=== PATIENT | male | born 1980 ===

== ENCOUNTER 2019-03-06 21:18 | Emergency (ER) | payer SELFPAY ==
[2019-03-06 22:46] LABS: Absolute Lymphocytes (CBC) 0.3 K/uL (0.7-4.9); Basophils % 0.3 % (0-1.3); Hematocrit 38.9 % (39.6-49.0); Lymphocytes % 10.5 % (15.3-44.8); MPV 10.8 fL (7.6-11.3); RBC Red Blood Cell Count 4.25 M/uL (4.33-5.43)
[2019-03-06 23:01] LABS: Potassium 3.8 mmol/L (3.5-5.1)
[2019-03-07 00:46] LABS: Urine Blood NEGATIVE (NEG); Urine Glucose NEGATIVE (NEG); Urine Protein NEGATIVE (NEG); Urine Specific Gravity 1.015 (1.005-1.030); Urine pH 7.5 (5.0-7.0)
--- NOTE | 2019-03-07 01:15 | ER ---
Nurse's Notes [facility] Name: Yong Dukes Age: 38 yrs Sex: Male : 1980 Arrival Date: 03/06/2019 Time: 21:25 Bed 14 Private MD: Diagnosis: Unspecified abdominal pain;Fever presenting with conditions classified elsewhere Presentation: 03/06 21:37 Presenting complaint: Patient states: Chills and abdominal pain since Sunday after aj1 work. Reports pain to umbilical area. Denies N/V/D. Transition of care: patient was not received from another setting of care. Onset of symptoms was February 2019. Risk Assessment: Do you want to hurt yourself or someone else? Patient reports no desire to harm self or others. Initial Sepsis Screen: Does the patient meet any 2 criteria? No. Patient's initial sepsis screen is negative. Does the patient have a suspected source of infection? No. Patient's initial sepsis screen is negative. Care prior to arrival: None. 21:37 Method Of Arrival: Ambulatory [facility] 21:37 Acuity: CLAUDIA 3 aj1 Triage Assessment: 21:39 General: Appears in no apparent distress. comfortable, Behavior is calm, cooperative, aj1 appropriate for age. Pain: Complains of pain in umbilical area. Pain: Pain currently is 4 out of 10 on a pain scale. Neuro: Level of Consciousness is awake, alert, obeys commands, Oriented to person, place, time, situation. Cardiovascular: Patient's skin is warm and dry. Respiratory: Airway is patent Respiratory effort is even, unlabored, Respiratory pattern is regular, symmetrical. GI: Patient currently denies diarrhea, vomiting. Historical: - Allergies: 21:39 No Known Allergies; aj1 - Home Meds: 21:39 lisinopril [Active]; unknown blood pressure medication [Active]; aj1 - PMHx: 21:39 Hypertension; aj1 - PSHx: 21:39 None; aj1 - Immunization history:: Flu vaccine is not up to date. - Social history:: Smoking status: Patient/guardian denies using tobacco. - Ebola Screening: : Patient denies travel to an Ebola-affected area in the 21 days before illness onset. Screenin:44 Abuse screen: Denies threats or abuse. Denies injuries from another. Nutritional mg2 screening: No deficits noted. Tuberculosis screening: No symptoms or risk factors identified. Fall Risk IV access (20 points). Assessment: 23:43 General: Appears in no apparent distress. comfortable, Behavior is calm, cooperative. mg2 Pain: Complains of pain in abdomen and umbilical area Pain does not radiate. Pain currently is 2 out of 10 on a pain scale. Quality of pain is described as aching, Pain began gradually, Is intermittent. Neuro: Level of Consciousness is awake, alert, obeys commands, Oriented to person, place, time, situation. Cardiovascular: Capillary refill < 3 seconds Patient's skin is warm and dry. Respiratory: No deficits noted. GI: Reports lower abdominal pain. : No signs and/or symptoms were reported regarding the genitourinary system. EENT: No signs and/or symptoms were reported regarding the EENT system. Derm: Skin is intact, is healthy with good turgor, Skin is pink, warm \T\ dry. normal. Musculoskeletal: Circulation, motion, and sensation intact. Capillary refill < 3 seconds. 03/07 00:57 Reassessment: Patient appears in no apparent distress at this time. Patient and/or family updated on plan of care and expected duration. Pain level reassessed. Patient is alert, oriented x 3, equal unlabored respirations, skin warm/dry/pink. Patient states feeling better. Patient states symptoms have improved. 01:08 Reassessment: report given to Arleen. 01:28 Reassessment: Ana DICKERSON notified of temp. Dr Espinosa going to see pt and evaluate him. fc Pt to be moved to room 14 and report given to Fredis STUART. 02:35 Reassessment: Patient appears in no apparent distress at this time. Patient and/or jb4 family updated on plan of care and expected duration. Pain level reassessed. Patient is alert, oriented x 3, equal unlabored respirations, skin warm/dry/pink. Reports having slight pain to the lower abdomen, otherwise is comfortable. family member is at the bedside. 03:35 Reassessment: Patient appears in no apparent distress at this time. Patient and/or jb4 family updated on plan of care and expected duration. Pain level reassessed. Patient is alert, oriented x 3, equal unlabored respirations, skin warm/dry/pink. 04:24 Reassessment: Patient appears in no apparent distress at this time. Patient and/or jb4 family updated on plan of care and expected duration. Pain level reassessed. Patient is alert, oriented x 3, equal unlabored respirations, skin warm/dry/pink. 05:43 Reassessment: Patient appears in no apparent distress at this time. Patient and/or jb4 family updated on plan of care and expected duration. Pain level reassessed. Patient is alert, oriented x 3, equal unlabored respirations, skin warm/dry/pink. 06:56 Reassessment: Patient appears in no apparent distress at this time. Patient and/or jb4 family updated on plan of care and expected duration. Pain level reassessed. Patient is alert, oriented x 3, equal unlabored respirations, skin warm/dry/pink. Pt ambulated out of ED with , steady gait, verbalized understanding of d/c and follow up instructions. Vital Signs: 03/06 21:39 BP 148 / 89; Pulse 97; Resp 18; Temp 98.2; Pulse Ox 100% on R/A; Weight 77.11 kg (R); aj1 Pain 4/10; 23:55 BP 153 / 79; Pulse 96; Resp 20; Temp 99.0(O); Pulse Ox 100% ; lt1 03/07 00:02 BP 138 / 76; Pulse 97; Resp 18; Pulse Ox 100% on R/A; mg2 00:57 BP 136 / 89; Pulse 92; Resp 16; Temp 98.1; Pulse Ox 99% on R/A; Pain 4/10; ch 01:28 BP 136 / 79; Pulse 90; Resp 18; Temp 102.8(O); Pulse Ox 98% on R/A; Pain 0/10; fc 02:30 BP 128 / 78; Pulse 95; Resp 16; Temp 101.2(O); Pulse Ox 98% on R/A; jb4 03:30 BP 121 / 81; Pulse 78; Resp 16; Pulse Ox 95% on R/A; jb4 04:30 BP 116 / 72; Pulse 64; Resp 17; Temp 98.5(O); Pulse Ox 97% on R/A; jb4 05:30 BP 132 / 80; Pulse 82; Resp 16; Pulse Ox 99% on R/A; jb4 06:30 BP 122 / 86; Pulse 76; Resp 16; Pulse Ox 100% on R/A; jb4 ED Course: 03/06 21:25 Patient arrived in ED. ds1 21:33 Ana De La Fuente FNP-C [facility]. kb 21:33 Lucas Espinosa MD is Attending Physician. kb 21:38 Triage completed. aj1 21:39 Arm band placed on Patient placed in waiting room, Patient notified of wait time. aj1 23:00 Inserted saline lock: 20 gauge in right antecubital area, using aseptic technique. mg2 Blood collected. 23:44 Patient has correct armband on for positive identification. Pulse ox on. NIBP on. mg2 23:58 CT Abd/Pelvis - IV Contrast Only In Process Unspecified. EDMS 08 01:35 IV is patent, is intact, with fluids infusing freely, with good blood return. jb4 01:41 Twin Bui, RN is Primary Nurse. jb4 01:47 Served as a encoding machine operator during rectal exam. ak1 02:07 X-ray completed. Portable x-ray completed in exam room. Patient tolerated procedure kw well. 02:09 Chest Single View XRAY In Process Unspecified. EDMS 06:30 IV discontinued, intact, bleeding controlled, No redness/swelling at site. Pressure jb4 dressing applied. Administered Medications: 01:45 Drug: Ibuprofen 600 mg Route: PO; jb4 02:45 Follow up: Response: No adverse reaction; Temperature is decreased jb4 02:35 Drug: Rocephin 2 grams {Note: no IV push variants in the pixes, provider notified, jb4 given IVPB over 30 minutes.} Route: IV; Rate: calculated rate; Site: right antecubital; 03:05 Follow up: Response: No adverse reaction; IV Status: Completed infusion; IV Intake: jb4 100ml 02:55 Drug: NS 0.9% 1000 ml Route: IV; Rate: 1000 ml; Site: right antecubital; jb4 04:00 Follow up: IV Status: Completed infusion; IV Intake: 1000ml jb4 Intake: 03:05 IV: 100ml; Total: 100ml. jb4 04:00 IV: 1000ml; Total: 1100ml. jb4 Outcome: 01:13 Discharge ordered by . kb 06:30 Discharged to home ambulatory, with family. jb4 06:30 Condition: stable 06:30 Discharge instructions given to patient, family, Instructed on discharge instructions, follow up and referral plans. medication usage, Demonstrated understanding of instructions, follow-up care, medications, Prescriptions given X 3. 06:35 Discharge ordered by MD. sandoval 07:03 Patient left the ED. jb4 Signatures: Dispatcher [employer] EDHI Ana De La Fuente, PENOLOGY PROFESSOR-C PENOLOGY PROFESSOR-Alicia Hudson, RN RN Ingrid Hughes RN RN aj1 Diane Jasmine PENOLOGY PROFESSOR-C PENOLOGY PROFESSOR-Blossom Aguero, RN RN Chandrika Ruiz ds1 Kierra Rose Amber, RN RN ak1 Twin Bui RN RN jb4 Kali Pennington RN RN mg2 Karis Rodriguez 1 Corrections: (The following items were deleted from the chart) 01:48 08 23:00 No provider procedures requiring assistance completed. mg2 ak1
--- NOTE | 2019-03-07 01:15 | EDPHYS ---
Physician Documentation [facility] Name: Yong Dukes Age: 38 yrs Sex: Male : 1980 Arrival Date: 03/06/2019 Time: 21:25 Bed 14 Private MD: ED Physician Lucas Espinosa HPI: 03/07 00:30 This 38 yrs old Male presents to ER via Ambulatory with complaints of Fever. kb 00:30 The patient presents with abdominal pain suprapubic. Onset: The symptoms/episode kb began/occurred 3 day(s) ago. The symptoms do not radiate. Associated signs and symptoms: Pertinent positives: fever, Pertinent negatives: nausea, vomiting, and diarrhea. The symptoms are described as constant. Modifying factors: The symptoms are alleviated by nothing, the symptoms are aggravated by nothing. Severity of pain: At its worst the pain was mild moderate in the emergency department the pain is unchanged. The patient has not experienced similar symptoms in the past. The patient has not recently seen a physician. Historical: - Allergies: 03/06 21:39 No Known Allergies; aj1 - Home Meds: 21:39 lisinopril [Active]; unknown blood pressure medication [Active]; aj1 - PMHx: 21:39 Hypertension; aj1 - PSHx: 21:39 None; aj1 - Immunization history:: Flu vaccine is not up to date. - Social history:: Smoking status: Patient/guardian denies using tobacco. - Ebola Screening: : Patient denies travel to an Ebola-affected area in the 21 days before illness onset. ROS: 03/07 00:29 ENT: Negative for injury, pain, and discharge, Neck: Negative for injury, pain, and kb swelling, Cardiovascular: Negative for chest pain, palpitations, and edema, Respiratory: Negative for shortness of breath, cough, wheezing, and pleuritic chest pain, Back: Negative for injury and pain, : Negative for injury, bleeding, discharge, and swelling, MS/Extremity: Negative for injury and deformity, Skin: Negative for injury, rash, and discoloration, Neuro: Negative for headache, weakness, numbness, tingling, and seizure. Constitutional: Positive for fever, Negative for body aches, chills, fatigue, malaise, poor PO intake, weight loss. Abdomen/GI: Positive for abdominal pain, Negative for nausea, vomiting, and diarrhea, diarrhea, constipation, abdominal cramps, abdominal distension, anorexia. Exam: 00:29 Constitutional: This is a well developed, well nourished patient who is awake, alert, kb and in no acute distress. Head/Face: Normocephalic, atraumatic. ENT: Nares patent. No nasal discharge, no septal abnormalities noted. Tympanic membranes are normal and external auditory canals are clear. Oropharynx with no redness, swelling, or masses, exudates, or evidence of obstruction, uvula midline. Mucous membranes moist. Neck: Trachea midline, no thyromegaly or masses palpated, and no cervical lymphadenopathy. Supple, full range of motion without nuchal rigidity, or vertebral point tenderness. No Meningismus. Chest/axilla: Normal chest wall appearance and motion. Nontender with no deformity. No lesions are appreciated. Cardiovascular: Regular rate and rhythm with a normal S1 and S2. No gallops, murmurs, or rubs. Normal PMI, no JVD. No pulse deficits. Respiratory: Lungs have equal breath sounds bilaterally, clear to auscultation and percussion. No rales, rhonchi or wheezes noted. No increased work of breathing, no retractions or nasal flaring. Abdomen/GI: Soft, non-tender, with normal bowel sounds. No distension or tympany. No guarding or rebound. No evidence of tenderness throughout. Skin: Warm, dry with normal turgor. Normal color with no rashes, no lesions, and no evidence of cellulitis. MS/ Extremity: Pulses equal, no cyanosis. Neurovascular intact. Full, normal range of motion. Neuro: Awake and alert, GCS 15, oriented to person, place, time, and situation. Cranial nerves II-XII grossly intact. Motor strength 5/5 in all extremities. Sensory grossly intact. Cerebellar exam normal. Normal gait. 02:04 Abdomen/GI: Rectal exam: Prostate: normal, rectal tone normal, Stool: guaiac trace kb positive, the exam is chaperoned by the nurse. Vital Signs: 03/06 21:39 BP 148 / 89; Pulse 97; Resp 18; Temp 98.2; Pulse Ox 100% on R/A; Weight 77.11 kg (R); aj1 Pain 4/10; 23:55 BP 153 / 79; Pulse 96; Resp 20; Temp 99.0(O); Pulse Ox 100% ; lt1 03/07 00:02 BP 138 / 76; Pulse 97; Resp 18; Pulse Ox 100% on R/A; mg2 00:57 BP 136 / 89; Pulse 92; Resp 16; Temp 98.1; Pulse Ox 99% on R/A; Pain 4/10; ch 01:28 BP 136 / 79; Pulse 90; Resp 18; Temp 102.8(O); Pulse Ox 98% on R/A; Pain 0/10; fc 02:30 BP 128 / 78; Pulse 95; Resp 16; Temp 101.2(O); Pulse Ox 98% on R/A; jb4 03:30 BP 121 / 81; Pulse 78; Resp 16; Pulse Ox 95% on R/A; jb4 04:30 BP 116 / 72; Pulse 64; Resp 17; Temp 98.5(O); Pulse Ox 97% on R/A; jb4 05:30 BP 132 / 80; Pulse 82; Resp 16; Pulse Ox 99% on R/A; jb4 06:30 BP 122 / 86; Pulse 76; Resp 16; Pulse Ox 100% on R/A; jb4 MDM: 03/06 22:05 Patient medically screened. kb 03/07 00:29 Data reviewed: vital signs, nurses notes. Data interpreted: Pulse oximetry: on room air kb is 100 %. Interpretation: normal. 01:36 ED course: Pt spiked a fever now. Dr Espinosa evaluated pt as well. Will add labs, give kb antibiotics and keep pt for observation upon Dr Espinosa's recommendation. 02:03 ED course: Discussed admission with Dr Palma. He does not feel that pt needs to be kb admitted based on what we have found. Discussed this with Dr Espinosa. Dr Espinosa will monitor pt and reevaluate after treatment. . 03/06 22:28 Order name: Basic Metabolic Panel; Complete Time: 23:05 kb 03/06 22:28 Order name: CBC with Diff; Complete Time: 22:58 kb 03/07 00:40 Order name: Urine Dipstick--Ancillary (enter results) mw2 03/07 01:37 Order name: Hepatic Function; Complete Time: 02:44 kb 03/07 01:37 Order name: Lipase; Complete Time: 02:44 kb 03/07 01:37 Order name: [place] Screen Profile; Complete Time: 02:44 kb 03/06 22:28 Order name: CT Abd/Pelvis - IV Contrast Only kb 03/07 01:46 Order name: Urine Microscopic Only; Complete Time: 06:18 kb 03/07 01:46 Order name: Urine Culture kb 03/07 01:46 Order name: Blood Culture Adult (2) kb 03/07 01:46 Order name: Lactate; Complete Time: 02:44 kb 03/07 01:46 Order name: Procalcitonin; Complete Time: 06:18 kb 03/07 01:56 Order name: Chest Single View XRAY kb 03/06 22:28 Order name: IV Saline Lock; Complete Time: 23:00 kb 03/06 22:28 Order name: Labs collected and sent; Complete Time: 23:00 kb Administered Medications: 01:45 Drug: Ibuprofen 600 mg Route: PO; jb4 02:45 Follow up: Response: No adverse reaction; Temperature is decreased jb 02:35 Drug: Rocephin 2 grams {Note: no IV push variants in the pixes, provider notified, jb4 given IVPB over 30 minutes.} Route: IV; Rate: calculated rate; Site: right antecubital; 03:05 Follow up: Response: No adverse reaction; IV Status: Completed infusion; IV Intake: jb4 100ml 02:55 Drug: NS 0.9% 1000 ml Route: IV; Rate: 1000 ml; Site: right antecubital; jb4 04:00 Follow up: IV Status: Completed infusion; IV Intake: 1000ml jb4 Disposition: 03/07/19 06:35 Discharged to Home. Impression: Unspecified abdominal pain, Fever presenting with conditions classified elsewhere. - Condition is Stable. - Discharge Instructions: Abdominal Pain, Adult, Fever, Adult. - Prescriptions for Bentyl 20 mg Oral Tablet - take 1 tablet by ORAL route every 6 hours As needed; 20 tablet. Cipro 500 mg Oral Tablet - take 1 tablet by ORAL route every 12 hours for 10 days; 20 tablet. Flagyl 500 mg Oral Tablet - take 1 tablet by ORAL route every 8 hours for 10 days No Alcohol within 8 hours of last dose; 30 tablet. - Work release form, Medication Reconciliation Form, Thank You Letter, Antibiotic Education, Prescription Opioid Use form. - Follow up: Private Physician; When: 2 - 3 days; Reason: Recheck today's complaints, Continuance of care, Re-evaluation by your physician. Follow up: Emergency Department; When: As needed; Reason: Worsening of condition. Signatures: Dispatcher [employer] EDAna Riojas, CATHY LOPEZ-Ingrid Limon RN RN aj1 Diane Jasmine FNP-C FNP-Twin Mack RN RN jb4 Corrections: (The following items were deleted from the chart) 01:37 00:29 Counseling: I had a detailed discussion with the patient and/or guardian kb regarding: the historical points, exam findings, and any diagnostic results supporting the discharge/admit diagnosis, lab results, radiology results, the need for outpatient follow up, a family practitioner, to return to the emergency department if symptoms worsen or persist or if there are any questions or concerns that arise at home, kb 01:37 01:13 03/07/2019 01:13 Discharged to Home. Impression: Lower abdominal pain, kb unspecified. Condition is Stable. Forms are Medication Reconciliation Form, Thank You Letter, Antibiotic Education, Prescription Opioid Use. Follow up: Emergency Department; When: As needed; Reason: Worsening of condition. Follow up: Private Physician; When: 2 - 3 days; Reason: Recheck today's complaints, Continuance of care, Re-evaluation by your physician. kb 07:03 06:35 03/07/2019 06:35 Discharged to Home. Impression: Unspecified abdominal pain; jb4 Fever presenting with conditions classified elsewhere. Condition is Stable. Forms are Medication Reconciliation Form, Thank You Letter, Antibiotic Education, Prescription Opioid Use. Follow up: Private Physician; When: 2 - 3 days; Reason: Recheck today's complaints, Continuance of care, Re-evaluation by your physician. Follow up: Emergency Department; When: As needed; Reason: Worsening of condition. snw
[2019-03-07] MEDS ORDERED: IBUPROFEN 200 MG TAB PO ONE (01:43)
[2019-03-07] MEDS ORDERED: CEFTRIAXONE 1000 MG/VIAL ONE ×2 (01:43→01:44)
[2019-03-07] MEDS ORDERED: NA CHLORIDE 0.9% 100 ML IV ONE (02:18)
[2019-03-07 02:37] LABS: Albumin 3.7 g/dL (3.4-5.0); Bilirubin Direct 0.2 mg/dL (0-0.2); Bilirubin Total 0.7 mg/dL (0.2-1.0); Protein, Total 7.3 g/dL (6.4-8.2)
[2019-03-07 02:45] LABS: Urine RBC NONE SEEN /HPF (NONE SEEN)
[2019-03-07 02:46] LABS: Urine Bacteria <20 /HPF (NONE SEEN); Urine Culture Reflex Order NOT NEEDED
[2019-03-07] MEDS ORDERED: NA CHLORIDE 0.9% 1,000 ML ONE (02:53)
--- NOTE | 2019-03-07 08:39 | RAD REPORT ---
EXAM DESCRIPTION: [place] Single View03/07/2019 2:08 am CLINICAL HISTORY: Fever COMPARISON: none FINDINGS: The lungs appear clear of acute infiltrate. The heart is normal size IMPRESSION: No acute abnormalities displayed
--- NOTE | 2019-03-10 15:14 | RAD REPORT ---
EXAM DESCRIPTION: CT - Abdomen Pelvis W Contrast - 03/07/2019 3:07 am CLINICAL HISTORY: 38 years Male ABD PAIN COMPARISON: None TECHNIQUE: Images were obtained in axial, sagittal, and coronal planes. Intravenous contrast was adm inistered. Arterial and venous phase imaging was performed. This exam was performed according to our departmental dose-optimization program which includes use of Automated Exposure Control, adjustment of the mA and/or kV according to patient size and/or use of i terative reconstruction technique. FINDINGS: Appendix within normal limits. No bowel obstruction, perforation, or inflammation. No obstructing renal calcifications bilaterally. No hydronephrosis bilaterally. Unremarkable bladder. No abnormality involving the liver. Contracted gallbladder. Spleen is enlarged measuring 13.6 cm in g reatest dimension. Unremarkable pancreas and adrenal glands bilaterally. No dilatation abdominal aorta. Unremarkable portal vein. No adenopathy or abnormal fluid collections seen. No abnormality lower lungs bilaterally. No acute osseous abnormality. IMPRESSION: No acute intra-abdominal abnormality. Enlarged spleen. Contracted gallbladder. Appendix within normal limits. Electronically signed by: Ni Schwab MD 03/07/2019 12:07 AM CDT Due to temporary technical issues with the PACS/Fluency reporting system, reports are being signed by the in house radiologist as a courtesy to ensure prompt reporting. The interpreting radiologist is f ully responsible for the content of the report.
== END 2019-03-07 07:03 | disposition home or self-care (01) ==
LOC: ER 21:18
DX: R10.2 Pelvic and perineal pain (principal); R50.9 Fever, unspecified; I10 Essential (primary) hypertension
CPT/HCPCS: 36415; 71045; 74177; 80048; 80076; 81003; 81015; 83605; 83690; 84145; 85025; 86308; 87040; 87086; 87088; 96361; 96365; 99284; J7030; Q9967

== ENCOUNTER 2019-06-19 22:51 | Emergency (ER) | payer SELFPAY ==
[2019-06-19] MEDS ORDERED: NA CHLORIDE 0.9% 500 ML ONE (23:50)
[2019-06-20 00:43] LABS: Barbiturates NEGATIVE (NEGATIVE); Benzodiazepines NEGATIVE (NEGATIVE); Cocaine NEGATIVE (NEGATIVE); METHAMPHETAM NEGATIVE (NEGATIVE); Methadone NEGATIVE (NEGATIVE); Opiates NEGATIVE (NEGATIVE); Phencyclidine NEGATIVE (NEGATIVE); THC Cannibis NEGATIVE (NEGATIVE)
[2019-06-20 00:58] LABS: Urine Blood NEGATIVE (NEG); Urine Glucose NEGATIVE (NEG); Urine Protein NEGATIVE (NEG); Urine Specific Gravity 1.015 (1.005-1.030)
[2019-06-20 00:59] LABS: Protime INR 1.26
[2019-06-20 01:00] LABS: Absolute Lymphocytes (CBC) 1.2 K/uL (0.7-4.9); Basophils % 0.3 % (0-1.3); Lymphocytes % 17.7 % (15.3-44.8); MPV 10.8 fL (7.6-11.3); RBC Red Blood Cell Count 4.85 M/uL (4.33-5.43)
[2019-06-20 01:18] LABS: ALT/SGPT 26 U/L (12-78); AST/SGOT 14 U/L (15-37); Albumin 4.1 g/dL (3.4-5.0); Alkaline Phosphatase 68 U/L (45-117); BUN Blood Urea Nitrogen 15 mg/dL (7-18); Bicarbonate 28 mmol/L (21-32); Bilirubin Direct 0.1 mg/dL (0-0.2); Bilirubin Total 0.3 mg/dL (0.2-1.0); Glucose Level 101 mg/dL (74-106); Lipase 68 U/L (73-393); Magnesium 2.2 mg/dL (1.8-2.4); NT PRO-BNP 7 pg/mL (<125); Potassium 3.4 mmol/L (3.5-5.1); Protein, Total 7.5 g/dL (6.4-8.2); Sodium Level 141 mmol/L (136-145); Troponin (Emerg Dept Use Only) < 0.02 ng/mL (0.0-0.045)
--- NOTE | 2019-06-20 01:28 | EDPHYS ---
Physician Documentation [facility] Name: Yong Dukes Age: 38 yrs Sex: Male : 1980 Arrival Date: 06/19/2019 Time: 22:55 Bed 26 Private MD: ED Physician Travon Ball HPI: 06/19 23:31 This 38 yrs old Male presents to ER via Ambulatory with complaints of High adan Blood Pressure. 23:31 The patient has elevated blood pressure and discovered this at home. Onset: The adan symptoms/episode began/occurred today, yesterday. Modifying factors: The symptoms are aggravated by activity, The symptoms are alleviated by remaining still. Associated signs and symptoms: The patient has no apparent associated signs or symptoms. Severity of symptoms: At its worst the blood pressure was mild, in the emergency department the blood pressure is unchanged. The patient has not experienced similar symptoms in the past. Historical: - Allergies: 23:07 No Known Allergies; ak1 - Home Meds: 23:07 Lisinopril [Active]; unknown blood pressure medication [Active]; ak1 - PMHx: 23:07 Hypertension; ak1 - PSHx: 23:07 None; ak1 - Immunization history:: Adult Immunizations unknown. - Social history:: Smoking status: Patient/guardian denies using tobacco. - Family history:: not pertinent. - Ebola Screening: : Patient denies travel to an Ebola-affected area in the 21 days before illness onset. ROS: 23:31 Constitutional: Negative for fever, chills, and weight loss, Eyes: Negative for injury, adan pain, redness, and discharge, ENT: Negative for injury, pain, and discharge, Neck: Negative for injury, pain, and swelling, Respiratory: Negative for shortness of breath, cough, wheezing, and pleuritic chest pain, Abdomen/GI: Negative for abdominal pain, nausea, vomiting, diarrhea, and constipation, Back: Negative for injury and pain, : Negative for injury, bleeding, discharge, and swelling, MS/Extremity: Negative for injury and deformity, Skin: Negative for injury, rash, and discoloration, Neuro: Negative for headache, weakness, numbness, tingling, and seizure, Psych: Negative for depression, anxiety, suicide ideation, homicidal ideation, and hallucinations, Allergy/Immunology: Negative for hives, rash, and allergies, Endocrine: Negative for neck swelling, polydipsia, polyuria, polyphagia, and marked weight changes, Hematologic/Lymphatic: Negative for swollen nodes, abnormal bleeding, and unusual bruising. 23:31 Cardiovascular: Positive for palpitations. Exam: 23:31 Constitutional: This is a well developed, well nourished patient who is awake, alert, adan and in no acute distress. Head/Face: Normocephalic, atraumatic. Eyes: Pupils equal round and reactive to light, extra-ocular motions intact. Lids and lashes normal. Conjunctiva and sclera are non-icteric and not injected. Cornea within normal limits. Periorbital areas with no swelling, redness, or edema. ENT: Nares patent. No nasal discharge, no septal abnormalities noted. Tympanic membranes are normal and external auditory canals are clear. Oropharynx with no redness, swelling, or masses, exudates, or evidence of obstruction, uvula midline. Mucous membranes moist. Neck: Trachea midline, no thyromegaly or masses palpated, and no cervical lymphadenopathy. Supple, full range of motion without nuchal rigidity, or vertebral point tenderness. No Meningismus. Chest/axilla: Normal chest wall appearance and motion. Nontender with no deformity. No lesions are appreciated. Cardiovascular: Regular rate and rhythm with a normal S1 and S2. No gallops, murmurs, or rubs. Normal PMI, no JVD. No pulse deficits. Respiratory: Lungs have equal breath sounds bilaterally, clear to auscultation and percussion. No rales, rhonchi or wheezes noted. No increased work of breathing, no retractions or nasal flaring. Abdomen/GI: Soft, non-tender, with normal bowel sounds. No distension or tympany. No guarding or rebound. No evidence of tenderness throughout. Back: No spinal tenderness. No costovertebral tenderness. Full range of motion. Male : Normal genitalia with no discharge or lesions. Skin: Warm, dry with normal turgor. Normal color with no rashes, no lesions, and no evidence of cellulitis. MS/ Extremity: Pulses equal, no cyanosis. Neurovascular intact. Full, normal range of motion. Neuro: Awake and alert, GCS 15, oriented to person, place, time, and situation. Cranial nerves II-XII grossly intact. Motor strength 5/5 in all extremities. Sensory grossly intact. Cerebellar exam normal. Normal gait. Psych: Awake, alert, with orientation to person, place and time. Behavior, mood, and affect are within normal limits. Vital Signs: 23:05 BP 155 / 97; Pulse 100; Resp 16; Temp 97.4; Pulse Ox 100% on R/A; Weight 79.38 kg (R); ak1 Height 5 ft. 5 in. (165.10 cm) (R); 06/20 00:10 BP 137 / 91; Pulse 88; Resp 18; Pulse Ox 97% on R/A; [facility] 01:12 BP 142 / 92; Pulse 84; Resp 19; Pulse Ox 98% on R/A; 1 06/19 23:05 Body Mass Index 29.12 (79.38 kg, 165.10 cm) [facility] MDM: 06/19 23:01 Patient medically screened. [facility] 23:33 Data reviewed: vital signs, nurses notes, lab test result(s), EKG, radiologic studies, adan plain films. 06/19 23:29 Order name: Basic Metabolic Panel [facility] 06/19 23:29 Order name: CBC with Diff; Complete Time: 01:05 [facility] 06/19 23:29 Order name: LFT's [facility] 06/19 23:29 Order name: Magnesium [facility] 06/19 23:29 Order name: NT PRO-BNP [facility] 06/19 23:29 Order name: PT-INR; Complete Time: 01:05 [facility] 06/19 23:29 Order name: Troponin (emerg Dept Use Only) [facility] 06/19 23:29 Order name: XRAY Chest (1 view) [facility] 06/19 23:29 Order name: Lipase [facility] 06/19 23:29 Order name: UDS; Complete Time: 01:05 [facility] 06/19 23:29 Order name: TSH [facility] 06/20 00:21 Order name: Urine Dipstick--Ancillary (enter results) dc5 06/20 01:41 Order name: T4 Free EDMS 06/19 23:29 Order name: EKG; Complete Time: 23:30 [facility] 06/19 23:29 Order name: Cardiac monitoring; Complete Time: 23:36 [facility] 06/19 23:29 Order name: EKG - Nurse/Tech; Complete Time: 23:36 [facility] 06/19 23:29 Order name: IV Saline Lock; Complete Time: 00:08 [facility] 06/19 23:29 Order name: Labs collected and sent; Complete Time: 00:09 [facility] 06/19 23:29 Order name: O2 Per Protocol; Complete Time: 23:36 [facility] 06/19 23:29 Order name: O2 Sat Monitoring; Complete Time: 23:36 [facility] 06/20 01:27 Order name: PO challenge: oj please; Complete Time: 01:38 [facility] Administered Medications: 06/20 00:08 Drug: NS 0.9% 500 ml Route: IV; Rate: bolus; Site: left antecubital; aj 02:05 Follow up: IV Status: Completed infusion; IV Intake: 500ml 01:34 Drug: ToPROL XL 25 mg {Note: Heart rate 86 BP 138/92.} Route: PO; 02:05 Follow up: Response: No adverse reaction aj Disposition: 06/20/19 01:27 Discharged to Home. Impression: Essential (primary) hypertension, Palpitations, Hypokalemia. - Condition is Stable. - Discharge Instructions: Potassium Content of Foods, Hypertension, Palpitations, Hypertension, [id number], Aspirin and Your Heart, Palpitations, [id number]-eu-[id number], Managing Your Hypertension. - Prescriptions for Toprol XL 25 mg Oral Tablet - take 1 tablet by ORAL route once daily; 20 tablet. - Medication Reconciliation Form, Thank You Letter, Antibiotic Education, Prescription Opioid Use form. - Follow up: Private Physician; When: 2 - 3 days; Reason: Recheck today's complaints, Continuance of care, Re-evaluation by your physician. Follow up: Deven Duran; When: 2 - 3 days; Reason: Recheck today's complaints, Re-evaluation by your physician. - Problem is new. - Symptoms have improved. Signatures: Dispatcher [employer] Ingrid Alexandra RN RN aj1 Travon Ball MD MD cha Krenek, Amber RN RN ak1 Corrections: (The following items were deleted from the chart) 02:07 01:27 06/20/2019 01:27 Discharged to Home. Impression: Essential (primary) aj1 hypertension; Palpitations; Hypokalemia. Condition is Stable. Discharge Instructions: Hypertension, Palpitations, Hypertension, [id number], Aspirin and Your Heart, Palpitations, Wutm-rl-Fexk, Managing Your Hypertension. Prescriptions for Toprol XL 25 mg Oral Tablet - take 1 tablet by ORAL route once daily; 20 tablet. and Forms are Medication Reconciliation Form, Thank You Letter, Antibiotic Education, Prescription Opioid Use. Follow up: Private Physician; When: 2 - 3 days; Reason: Recheck today's complaints, Continuance of care, Re-evaluation by your physician. Follow up: Deven Duran; When: 2 - 3 days; Reason: Recheck today's complaints, Re-evaluation by your physician. Problem is new. Symptoms have improved. adan
--- NOTE | 2019-06-20 01:28 | ER ---
Nurse's Notes [facility] Name: Yong Dukes Age: 38 yrs Sex: Male : 1980 Arrival Date: 06/19/2019 Time: 22:55 Bed 26 Private MD: Diagnosis: Essential (primary) hypertension;Palpitations;Hypokalemia Presentation: 06/19 23:05 Presenting complaint: Patient states: c/o palpitations. Transition of care: patient was ak1 not received from another setting of care. Onset of symptoms is unknown. Risk Assessment: Do you want to hurt yourself or someone else? Patient reports no desire to harm self or others. Initial Sepsis Screen: Does the patient meet any 2 criteria? No. Patient's initial sepsis screen is negative. Does the patient have a suspected source of infection? No. Patient's initial sepsis screen is negative. Care prior to arrival: None. 23:05 Method Of Arrival: Ambulatory ak1 23:05 Acuity: CLAUDIA 3 ak1 Triage Assessment: 23:07 General: Appears in no apparent distress. Behavior is calm, cooperative. ak1 Historical: - Allergies: 23:07 No Known Allergies; ak1 - Home Meds: 23:07 Lisinopril [Active]; unknown blood pressure medication [Active]; ak1 - PMHx: 23:07 Hypertension; ak1 - PSHx: 23:07 None; ak1 - Immunization history:: Adult Immunizations unknown. - Social history:: Smoking status: Patient/guardian denies using tobacco. - Family history:: not pertinent. - Ebola Screening: : Patient denies travel to an Ebola-affected area in the 21 days before illness onset. Screenin:32 Abuse screen: Denies threats or abuse. Denies injuries from another. Nutritional aj1 screening: No deficits noted. Tuberculosis screening: No symptoms or risk factors identified. 06/20 01:35 Fall Risk None identified. aj1 Assessment: 06/19 23:32 General: Appears in no apparent distress. comfortable, Behavior is calm, cooperative, aj1 appropriate for age. Pain: Denies pain. Neuro: Level of Consciousness is awake, alert, obeys commands, Oriented to person, place, time, situation. Cardiovascular: Reports palpitations, Denies chest pain, shortness of breath, Heart tones S1 S2 present Patient's skin is warm and dry. Respiratory: Airway is patent Respiratory effort is even, unlabored, Respiratory pattern is regular, symmetrical, Breath sounds are clear bilaterally. GI: No signs and/or symptoms were reported involving the gastrointestinal system. Abdomen is flat, non-distended. : No signs and/or symptoms were reported regarding the genitourinary system. EENT: No signs and/or symptoms were reported regarding the EENT system. Derm: No signs and/or symptoms reported regarding the dermatologic system. Skin is pink, warm \T\ dry. normal. Musculoskeletal: No signs and/or symptoms reported regarding the musculoskeletal system. Circulation, motion, and sensation intact. 06/20 00:10 Reassessment: Patient appears in no apparent distress at this time. No changes from [facility] previously documented assessment. Patient and/or family updated on plan of care and expected duration. Pain level reassessed. Patient is alert, oriented x 3, equal unlabored respirations, skin warm/dry/pink. 01:12 Reassessment: Patient appears in no apparent distress at this time. No changes from [facility] previously documented assessment. Patient and/or family updated on plan of care and expected duration. Pain level reassessed. Patient is alert, oriented x 3, equal unlabored respirations, skin warm/dry/pink. 02:04 Reassessment: Patient appears in no apparent distress at this time. No changes from [facility] previously documented assessment. Patient and/or family updated on plan of care and expected duration. Pain level reassessed. Patient is alert, oriented x 3, equal unlabored respirations, skin warm/dry/pink. Vital Signs: 06/19 23:05 BP 155 / 97; Pulse 100; Resp 16; Temp 97.4; Pulse Ox 100% on R/A; Weight 79.38 kg (R); ak1 Height 5 ft. 5 in. (165.10 cm) (R); 06/20 00:10 BP 137 / 91; Pulse 88; Resp 18; Pulse Ox 97% on R/A; aj1 01:12 BP 142 / 92; Pulse 84; Resp 19; Pulse Ox 98% on R/A; aj1 06/19 23:05 Body Mass Index 29.12 (79.38 kg, 165.10 cm) [facility] ED Course: 06/19 22:55 Patient arrived in ED. cf2 23:01 Quinn, Travon, MD is Attending Physician. adan 23:05 Arm band placed on Patient placed in an exam room, on a stretcher, Patient notified of ak1 wait time. 23:06 Triage completed. ak1 23:31 Ingrid Sen, RN is Primary Nurse. aj1 23:32 Patient has correct armband on for positive identification. Bed in low position. Call aj1 light in reach. 23:32 No provider procedures requiring assistance completed. aj1 06/20 00:08 Missed attempt(s): 20 gauge in right antecubital area. lt1 00:08 Initial lab(s) drawn, by me, sent to lab. Inserted saline lock: 22 gauge in left lt1 antecubital area, using aseptic technique. 00:46 XRAY Chest (1 view) In Process Unspecified. EDNY 01:27 Deven Duran MD is Referral Physician. adan 02:04 IV discontinued, intact, bleeding controlled, No redness/swelling at site. Pressure aj1 dressing applied. Administered Medications: 00:08 Drug: NS 0.9% 500 ml Route: IV; Rate: bolus; Site: left antecubital; aj1 02:05 Follow up: IV Status: Completed infusion; IV Intake: 500ml aj1 01:34 Drug: ToPROL XL 25 mg {Note: Heart rate 86 BP 138/92.} Route: PO; aj1 02:05 Follow up: Response: No adverse reaction aj1 Intake: 02:05 IV: 500ml; Total: 500ml. aj1 Outcome: 01:27 Discharge ordered by . adan 02:05 Discharged to home ambulatory. aj1 02:05 Condition: good 02:05 Discharge instructions given to patient, Instructed on discharge instructions, follow up and referral plans. medication usage, Demonstrated understanding of instructions, follow-up care, medications. 02:07 Patient left the ED. aj1 Signatures: Dispatcher [employer] EDNY Ingrid Sen, RN RN Travon Thomas MD MD cha Krenek, Amber RN RN Karis Reyez lt1 Galina Reddy cf2
[2019-06-20] MEDS ORDERED: METOPROLOL XL 50 MG TAB PO ONE (01:31)
[2019-06-20 02:37] VITALS: BP 146/82; TEMP 98.2; O2SAT 99
--- NOTE | 2019-06-20 07:54 | EKG ---
Test Date: 2019-06-19 Test Time: 23:11:19 Coarse Wire Drawer: MCT MEASUREMENT RESULTS: Intervals: Rate: 87 LA: 146 QRSD: 94 QT: 356 QTc: 428 [place]: P: 49 LA: 146 QRS: 34 T: 34 INTERPRETIVE STATEMENTS: Normal sinus rhythm Normal ECG No previous ECG available for comparison Electronically Signed On 06-20-19 07:54:06 RESOURCE TEACHER by Burton Looney
--- NOTE | 2019-06-20 08:22 | RAD REPORT ---
EXAM DESCRIPTION: RAD - Chest Single View - 06/20/2019 12:46 am CLINICAL HISTORY: PALPITATIONS Chest pain. COMPARISON: Chest Single View dated 03/07/2019 FINDINGS: Portable technique limits examination quality. The lungs are grossly clear. The heart is normal in size. No displaced fractures. IMPRESSION: No acute intrathoracic process suspected.
== END 2019-06-20 02:07 | disposition home or self-care (01) ==
LOC: ER 22:51
DX: I10 Essential (primary) hypertension (principal); R00.2 Palpitations; E87.6 Hypokalemia
CPT/HCPCS: 36415; 71045; 80048; 80076; 80307; 81003; 83690; 83735; 83880; 84439; 84443; 84484; 85025; 85610; 93005; 96360; 96361; 99284; J7040